=== PATIENT | female | born 1990 | race Caucasian/White ===

== ENCOUNTER → 2019-02-05 | Outpatient (CLI) | payer BC ==
[2019-02-05 11:45] LABS: HGB 11.6 gm/dL (11.4-16.0); MCH 27.5 pg (25.0-35.0); MCHC 31.2 g/dL (31.0-37.0); MCV 87.9 fL (80.0-100.0); Mean Platelet Volume 6.9; Platelet Count 406 k/uL (150-450); RBC 4.22 m/uL (3.80-5.40); RDW 13.5 % (11.5-15.5); WBC 11.7 k/uL (3.8-10.6)
[2019-02-05 20:21] LABS: Hemoglobin A1C 5.5 % (4.0-6.0)
[2019-02-07 10:55] LABS: HIV 1 AB Non-Reactive (Non-Reactive); HIV AB P24 Non-Reactive (Non-Reactive); HIV P24 AG Non-Reactive (Non-Reactive)
[2019-02-07 12:18] LABS: Parvovirus B-19 IgG Antibodies 6.17 INDEX (<=0.90); Parvovirus B-19 IgM Antibodies 0.49 INDEX (<=0.90)
== END | disposition home or self-care (01) ==
LOC: LABWHC1 10:15
PROVIDERS: ATTEND Clinical Nurse Specialist Women's Health
DX: Z34.01 Encounter for supervision of normal first pregnancy, first trimester (principal)
CPT/HCPCS: 36415; 82950; 83036; 85027; 86747; 86762; 86780; 86850; 86900; 86901; 87086; 87340; 87390